=== PATIENT | male | born 1960 | race African-American/Black ===

== ENCOUNTER 2017-06-26 22:51 | Emergency (ER) | payer MEDICAID ==
[~2017-06-26] VITALS: Ht 180.3 cm; Wt 71.0 kg
[2017-06-27] MEDS: METHYLPREDNISOLONE SOD SUCC 125 MG/2 ML VIAL IM ONE (00:41)
[2017-06-27 00:44] VITALS: BP 179/95
== END 2017-06-27 01:15 | disposition home or self-care (01) ==
LOC: ER 22:51
DX: T78.40XA Allergy, unspecified, initial encounter (principal); X58.XXXA Exposure to other specified factors, initial encounter
CPT/HCPCS: 96372; 99283; J2930

== ENCOUNTER 2022-07-29 10:52 | Emergency (ER) | payer MEDICAID ==
[~2022-07-29] VITALS: Ht 180.3 cm; Wt 70.0 kg
[2022-07-29] MEDS ORDERED: IBUPROFEN 400MG TABLET PO ONE (11:15)
[2022-07-29] MEDS ORDERED: LEVO-65 MT (13:25)
[2022-07-29] MEDS ORDERED: IBUP-2028 MT (13:28)
[2022-07-29 13:50] VITALS: BP 155/87
== END 2022-07-29 14:00 | disposition home or self-care (01) ==
LOC: ER 11:00
DX: N45.2 Orchitis (principal); N43.3 Hydrocele, unspecified; I10 Essential (primary) hypertension
CPT/HCPCS: 76870; 93976; 99284